=== PATIENT | female | born 1955 | race Caucasian/White ===

== ENCOUNTER 2018-07-21 17:50 | Emergency (ER) | payer OTHER ==
[~2018-07-21] VITALS: Ht 152.4 cm; Wt 59.0 kg
[2018-07-21 18:11] VITALS: BP_SYST 156
--- NOTE | 2018-07-21 21:13 | NUR ---
~ 0.5 laceration noted to right thumb, no active bleeding. Pt states that a crystal glass fell on her right hand. Mild swelling noted. Able to move hand and fingers without difficulty. Cap refil < 3 sec.
--- NOTE | 2018-07-21 21:13 | NUR ---
PT AMBULATORY TO BED 2 FOR EVALUATION
--- NOTE | 2018-07-21 21:20 | NUR ---
Dr. Grider at bedside.
--- NOTE | 2018-07-21 21:30 | NUR ---
Laceration well approximated with Tissue adhesive glue.
[2018-07-21] MEDS ORDERED: DIPH-TET-PERTUS Vaccine 0.5 ML VIAL (ADACEL) I.M. ONE (21:45)
[2018-07-21 21:55] VITALS: BP_SYST 128
--- NOTE | 2018-07-21 21:55 | NUR ---
Patient given written and verbal discharge instructions and verbalizes understanding. ER MD discussed with patient the results and treatment provided. Patient in stable condition. ID arm band removed. No Rx given. Patient educated on pain management and to follow up with PMD. Pain Scale 0/10. Opportunity for questions provided and answered. Medication side effect fact sheet provided.
== END 2018-07-21 21:55 | disposition home or self-care (01) ==
LOC: SED 17:50
DX: S61.511A Laceration without foreign body of right wrist, initial encounter (principal); R03.0 Elevated blood-pressure reading, without diagnosis of hypertension; W26.8XXA Contact with other sharp object(s), not elsewhere classified, initial encounter; Y93.89 Activity, other specified; Y92.89 Other specified places as the place of occurrence of the external cause; Y99.8 Other external cause status
CPT/HCPCS: 90715; 99283

== ENCOUNTER 2020-09-19 11:13 | Emergency (ER) | payer OTHER ==
[~2020-09-19] VITALS: Ht 167.6 cm; Wt 73.5 kg
[2020-09-19 11:39] VITALS: BP_SYST 142
[2020-09-19] MEDS ORDERED: KETOROLAC TROMETHAMINE 30 MG VIAL IM ONE (12:30)
[2020-09-19 13:33] VITALS: BP_SYST 142
== END 2020-09-19 13:35 | disposition home or self-care (01) ==
LOC: SED 11:13
DX: G57.02 Lesion of sciatic nerve, left lower limb (principal)
CPT/HCPCS: 96372; 99283; J1885

== ENCOUNTER 2020-09-28 11:18 | Emergency (ER) | payer OTHER ==
[~2020-09-28] VITALS: Ht 152.4 cm; Wt 50.8 kg
[2020-09-28 11:22] VITALS: BP_SYST 148
[2020-09-28] MEDS ORDERED: KETOROLAC TROMETHAMINE 30 MG VIAL IM ONE (12:00)
[2020-09-28] MEDS ORDERED: NEU300 PO (12:12)
[2020-09-28] MEDS ORDERED: CYCL-10 PO (12:12)
[2020-09-28] MEDS ORDERED: CIPR-211 PO (12:12)
[2020-09-28 12:41] VITALS: BP_SYST 148
== END 2020-09-28 12:42 | disposition home or self-care (01) ==
LOC: SED 11:18
DX: M54.32 Sciatica, left side (principal); Z79.899 Other long term (current) drug therapy
CPT/HCPCS: 96372; 99283; J1885

== ENCOUNTER 2021-12-09 17:52 | Emergency (ER) | payer OTHER, SELFPAY ==
[~2021-12-09] VITALS: Ht 177.8 cm; Wt 65.8 kg
[~2021-12-09 17:52] MED LIST: CIPR500T5 PO; CYCL10TA24 PO; NEU300 PO
[2021-12-09 18:02] VITALS: BP_SYST 160
--- NOTE | 2021-12-09 18:12 | NUR ---
TRIAGED IN BED THREE FOR BILAT FLANK PAIN, HEMATURIA AND HEADACHE X1 DAY. MD AT BEDSIDE
[2021-12-09] MEDS ORDERED: KETOROLAC TROMETHAMINE 30 MG VIAL IVP ONE (18:15)
[2021-12-09] MEDS ORDERED: amLODIPine BESYLATE 10 MG TABLET PO ONE (18:15)
[2021-12-09] MEDS ORDERED: NACL 0.9% 1,000 ML IV ONE (18:15)
[2021-12-09 18:48] LABS: BASOPHILS # (AUTO) 0.1 K/uL (0.0-0.2); BASOPHILS % (AUTO) 0.7 % (0.0-2.0); EOSINOPHILS # (AUTO) 0.1 K/uL (0.0-0.4); EOSINOPHILS % (AUTO) 0.8 % (0.0-4.0); HEMATOCRIT 39.8 % (36-48); HEMOGLOBIN 13.2 g/dL (12.0-16.0); LYMPHOCYTES # (AUTO) 3.5 K/uL (1.0-5.5); LYMPHOCYTES % (AUTO) 35.8 % (20.5-51.5); MEAN CORPUSCULAR HEMOGLOBIN 28 pg (27-31); MEAN CORPUSCULAR HGB CONC 33 % (32-36); MEAN CORPUSCULAR VOLUME 85 fL (79.0-98.0); MONOCYTES # (AUTO) 0.8 K/uL (0.0-1.0); MONOCYTES % (AUTO) 8.2 % (1.7-9.3); NEUTROPHILS # (AUTO) 5.3 K/uL (1.8-7.7); NEUTROPHILS % (AUTO) 54.5 % (40.0-70.0); PLATELET COUNT (AUTO) 281 K/uL (130-430); RED BLOOD CELL COUNT(AUTO) 4.66 MIL/uL (4.2-6.2); RED CELL DISTRIBUTION WIDTH 16.9 % (9.0-15.0); WHITE BLOOD COUNT (AUTO) 9.7 K/uL (4.8-10.8)
[2021-12-09 18:52] LABS: ANION GAP 12 (5-15); CALCIUM 9.7 mg/dL (8.4-11.0); CHLORIDE 93 mmol/L (98-107); CREATININE 0.75 mg/dL (0.55-1.30); GLUCOSE 139 mg/dL (70-99); POTASSIUM 3.8 mmol/L (3.5-5.1); SODIUM SERUM 130 mmol/L (136-145); UREA NITROGEN, BLOOD 14 mg/dL (8-21)
[2021-12-09 19:04] LABS: ALANINE AMINOTRANSFERASE 18 U/L (12-78); ASPARTATE AMINOTRANSFERASE 14 U/L (10-37); LIPASE 83 U/L (73-393); TOTAL BILIRUBIN < 0.1 mg/dL (0.0-1.0)
[2021-12-09 19:07] LABS: GFR AFRICAN AMERICAN 99 mL/min (>90)
[2021-12-09 19:09] LABS: BILIRUBIN,URINE NEGATIVE (NEGATIVE); BLOOD, URINE 3+ (NEGATIVE); CLARITY/URINE SL CLOUDY (CLEAR); COLOR,URINE YELLOW (YELLOW); GLUCOSE,URINE NEGATIVE (NEGATIVE); KETONES,URINE NEGATIVE (NEGATIVE); LEUKOCYTE ESTERASE ,URINE 1+ (NEGATIVE); NITRITE, URINE NEGATIVE (NEGATIVE); PROTEIN URINE NEGATIVE (NEGATIVE); UROBILINOGEN,URINE 0.2 (0.2-1.0)
[2021-12-09 19:12] LABS: BACTERIA,URINE FEW /HPF (None Seen)
[2021-12-09 19:13] LABS: MUCUS,URINE 1+ /LPF (None Seen)
--- NOTE | 2021-12-09 19:17 | NUR ---
REPORT TO [facility]
--- NOTE | 2021-12-09 19:22 | NUR ---
PATIENT A/OX4, 02 SATURATION IS 100% ON ROOM AIR. PATIENT LYING IN BED WITH EYES OPEN, CHEST RISE AND FALL SYMMETRICAL, NO C/O PAIN OR S/S OR DISTRESS. BED IN LOW AND LOCKED POSITION.
[2021-12-09] MEDS ORDERED: CEPH250C PO (19:28)
[2021-12-09] MEDS ORDERED: IBUP-1969 PO (19:29)
[2021-12-09] MEDS ORDERED: ACET-2634 PO (19:29)
[2021-12-09] MEDS ORDERED: cefTRIAXone 1 GM VIAL IM ONE (19:30)
[2021-12-09] MEDS ORDERED: CEPHALEXIN 125 MG/5 ML, 100 ML BTL PO ONE (19:45)
[2021-12-09] MEDS ORDERED: CEPHALEXIN 250 MG/5 ML, 100 ML BTL ONE (19:54)
[2021-12-09] MEDS ORDERED: cephALEXin 500 MG CAPSULE PO ONE (20:00)
[2021-12-09 20:20] VITALS: BP_SYST 143
== END 2021-12-09 20:20 | disposition home or self-care (01) ==
LOC: SED 17:52
DX: N39.0 Urinary tract infection, site not specified (principal); R10.9 Unspecified abdominal pain; I10 Essential (primary) hypertension; R51.9 Headache, unspecified; E11.9 Type 2 diabetes mellitus without complications; Z20.822 Contact with and (suspected) exposure to COVID-19
CPT/HCPCS: 36415; 74176; 76376; 80053; 81000; 83690; 85025; 87426; 96361; 96374; 99284; J1885; J7030